=== PATIENT | female | born 1935 | race Two or more races ===

== ENCOUNTER 2017-12-04 11:14 | Emergency (ER) | payer OTHER ==
[~2017-12-04] VITALS: Ht 154.9 cm; Wt 47.2 kg
[~2017-12-04 11:14] MED LIST: ANASTROZOLE1 MG PO; ARIMIDES; ARIMIDEX; DICLOFENAC POTA50 MG PO; MECLIZINE HCL25 MG PO; PERIDEX480 ML MM; VITAMINAS
== END 2017-12-04 14:44 | disposition home or self-care (01) ==
LOC: ER 11:14
DX: R51 Headache (principal); K58.8 Other irritable bowel syndrome

== ENCOUNTER 2018-02-22 12:20 | Emergency (ER) | payer OTHER ==
[~2018-02-22] VITALS: Ht 154.9 cm; Wt 45.8 kg
== END 2018-02-22 15:55 | disposition home or self-care (01) ==
LOC: ER 12:20
DX: R53.81 Other malaise (principal)

== ENCOUNTER 2018-02-23 07:45 | Emergency (ER) | payer OTHER | END 2018-02-23 15:37 | disposition home or self-care (01) | LOC: ER 07:45 | DX: R42 Dizziness and giddiness (principal); D64.89 Other specified anemias ==

== ENCOUNTER 2018-05-01 14:50 | Emergency (ER) | payer OTHER ==
[~2018-05-01] VITALS: Ht 152.4 cm; Wt 46.3 kg
[2018-05-01] MEDS ORDERED: ARIMIDEX (14:59)
== END 2018-05-01 16:22 | disposition home or self-care (01) ==
LOC: ER 14:50
DX: J02.9 Acute pharyngitis, unspecified (principal)

== ENCOUNTER 2018-05-23 07:40 | Outpatient (CLI) | payer OTHER | END 2018-05-23 07:46 | disposition home or self-care (01) | LOC: RX STUDY 07:40 | DX: R10.84 Generalized abdominal pain (principal); D64.89 Other specified anemias; K92.1 Melena ==

== ENCOUNTER 2018-07-05 17:41 | Emergency (ER) | payer OTHER ==
[~2018-07-05] VITALS: Ht 154.9 cm; Wt 45.8 kg
== END 2018-07-05 21:25 | disposition home or self-care (01) ==
LOC: ER 17:41
DX: R42 Dizziness and giddiness (principal)

== ENCOUNTER 2018-09-11 16:43 | Emergency (ER) | payer OTHER ==
[~2018-09-11] VITALS: Ht 152.4 cm; Wt 46.3 kg
== END 2018-09-11 22:28 | disposition home or self-care (01) ==
LOC: ER 16:43
DX: E86.0 Dehydration (principal); R11.2 Nausea with vomiting, unspecified; R53.1 Weakness

== ENCOUNTER 2018-11-09 11:26 | Emergency (ER) | payer OTHER ==
[~2018-11-09] VITALS: Ht 152.4 cm; Wt 47.6 kg
== END 2018-11-09 14:06 | disposition home or self-care (01) ==
LOC: ER 11:26
DX: M25.571 Pain in right ankle and joints of right foot (principal)

== ENCOUNTER 2019-02-17 17:53 | Emergency (ER) | payer OTHER ==
[~2019-02-17] VITALS: Ht 154.9 cm; Wt 46.3 kg
== END 2019-02-18 00:01 | disposition home or self-care (01) ==
LOC: ER 17:53
DX: K29.70 Gastritis, unspecified, without bleeding (principal)

== ENCOUNTER → 2019-04-03 | Outpatient (CLI) | payer OTHER | END | disposition home or self-care (01) | LOC: RAD 13:29 | DX: C50.212 Malignant neoplasm of upper-inner quadrant of left female breast (principal) ==

== ENCOUNTER 2019-08-01 10:34 | Emergency (ER) | payer OTHER ==
[~2019-08-01] VITALS: Ht 154.9 cm; Wt 51.7 kg
[2019-08-01] MEDS ORDERED: MUCINEX600 MG PO (14:57)
== END 2019-08-01 15:02 | disposition home or self-care (01) ==
LOC: ER 10:34
DX: J11.1 Influenza due to unidentified influenza virus with other respiratory manifestations (principal)

== ENCOUNTER 2019-11-30 16:53 | Emergency (ER) | payer OTHER ==
[~2019-11-30] VITALS: Ht 157.5 cm; Wt 52.2 kg
[~2019-11-30 16:53] MED LIST changes: +MUCINEX600 MG PO
== END 2019-11-30 18:00 | disposition home or self-care (01) ==
LOC: ER 16:53
DX: J02.8 Acute pharyngitis due to other specified organisms (principal)

== ENCOUNTER 2020-08-19 16:05 | Emergency (ER) | payer OTHER ==
[~2020-08-19] VITALS: Ht 160 cm; Wt 43.1 kg
== END 2020-08-20 08:58 | disposition home or self-care (01) ==
LOC: ER 16:05
DX: R11.2 Nausea with vomiting, unspecified (principal); R10.13 Epigastric pain; F41.8 Other specified anxiety disorders; Z03.818 Encounter for observation for suspected exposure to other biological agents ruled out